=== PATIENT | female | born 1985 | race Caucasian/White ===

== ENCOUNTER 2016-11-08 16:05 | Emergency (ER) | payer MEDICAID ==
[~2016-11-08] VITALS: Ht 162.6 cm; Wt 57.0 kg
[~2016-11-08 16:05] MED LIST: antibiotic
[2016-11-08] MEDS ORDERED: SODIUM CHLORIDE 0.9% 1,000 ML IV ONE (23:47)
[2016-11-09] MEDS ORDERED: ONDANSETRON HCL 4MG/2ML VIAL IV ONE
[2016-11-09 00:21] LABS: CLARITY URINE CLEAR (CLEAR); COLOR URINE YELLOW (YELLOW); GLUCOSE URINE NEGATIVE (NEGATIVE); KETONES URINE NEGATIVE (NEGATIVE); LEUKOCYTE ESTERASE URINE NEGATIVE (NEGATIVE); NITRITE URINE NEGATIVE (NEGATIVE); OCCULT BLOOD URINE 1+ (NEGATIVE); PROTEIN URINE NEGATIVE (NEGATIVE); SPECIFIC GRAVITY URINE 1.032 (1.005-1.030); UROBILINOGEN URINE 0.2 E.U./dL (0.2-1.0)
[2016-11-09 00:22] LABS: UCG SCREEN NEGATIVE
[2016-11-09 00:30] LABS: BASOPHILS % 0.1 % (0.0-2.0); EOSINOPHILS % 0.5 % (0.0-5.0); HEMATOCRIT. 41.3 % (36.0-48.0); HEMOGLOBIN. 13.9 g/dL (12.0-16.0); LYMPHOCYTES % 39.4 % (20.0-50.0); MEAN CORPUSCULAR HEMOGLOBIN 29.6 pg (28.0-32.0); MEAN CORPUSCULAR HGB CONC 33.6 g/dL (31.0-37.0); MEAN CORPUSCULAR VOLUME 88.1 fL (81.0-99.0); MEAN PLATELET VOLUME 9.2 fl (7.4-10.4); MONOCYTES % 6.3 % (2.0-8.0); NEUTROPHILS % 53.7 % (40.0-76.0); PLATELET 231 x1000/uL (130-400); RED BLOOD CELL COUNT 4.69 mill/uL (4.2-5.4); RED CELL DISTRIBUTION WIDTH 13.5 % (11.6-14.6)
[2016-11-09 00:43] LABS: CHLORIDE 104 mEq/L (98-107); INDEX HEMOLYSI 1 (1-3); INDEX ICTERIC 1 (1-4); INDEX LIPEMIC 1 (1-3)
[2016-11-09 00:51] LABS: ALANINE AMINOTRANSFERASE 19 IU/L (13-61); ALBUMIN 3.7 g/dL (3.4-5.0); ANION GAP 13; CALCIUM 8.9 mg/dL (8.5-10.1); CARBON DIOXIDE 26 mEq/L (21-32); UREA NITROGEN BLOOD 15 mg/dL (7-21); eGFR > 60 mL/min (>60)
[2016-11-09 01:28] LABS: SQUAMOUS EPITHELIAL CELL URINE 1+ /lpf (RARE/1+)
[2016-11-09 01:30] LABS: BACTERIA URINE 1+
[2016-11-09 07:24] VITALS: BP 90/50
[2016-11-09] MEDS ORDERED: IOHEXOL-300 100 ML BOTTLE ONE (10:44)
[2016-11-09] MEDS ORDERED: SODIUM CHLORIDE 0.9% 10ML VIAL ONE (10:44)
== END 2016-11-09 08:00 | disposition home or self-care (01) ==
LOC: ER 16:06
DX: N39.0 Urinary tract infection, site not specified (principal); R11.2 Nausea with vomiting, unspecified
CPT/HCPCS: 36415; 74177; 80053; 81001; 81025; 85025; 96361; 96374; 99285; A4216; J2405; J7030; Q9967; Z7610

== ENCOUNTER 2017-02-12 17:34 | Emergency (ER) | payer MEDICAID ==
[~2017-02-12] VITALS: Ht 147.3 cm; Wt 53.0 kg
[2017-02-12] MEDS ORDERED: KETOROLAC 60MG/2ML VIAL IM ONE (20:00)
[2017-02-13 00:07] VITALS: BP 124/80
== END 2017-02-13 00:35 | disposition home or self-care (01) ==
LOC: ER 19:40
DX: M17.11 Unilateral primary osteoarthritis, right knee (principal); W06.XXXA Fall from bed, initial encounter; Y93.89 Activity, other specified; Y92.013 Bedroom of single-family (private) house as the place of occurrence of the external cause
CPT/HCPCS: 73562; 81025; 96372; 99284; J1885

== ENCOUNTER 2022-01-09 20:16 | Emergency (ER) | payer MEDICAID ==
[~2022-01-09] VITALS: Ht 149.9 cm; Wt 65.9 kg
[2022-01-09 20:33] VITALS: BP 116/78
[2022-01-09 21:12] LABS: CLARITY URINE CLOUDY (CLEAR); COLOR URINE DARK YELLOW (YELLOW); KETONES URINE TRACE (NEGATIVE); LEUKOCYTE ESTERASE URINE TRACE (NEGATIVE); NITRITE URINE NEGATIVE (NEGATIVE); OCCULT BLOOD URINE 2+ (NEGATIVE); PROTEIN URINE TRACE (NEGATIVE); SPECIFIC GRAVITY URINE 1.032 (1.005-1.030)
[2022-01-09] MEDS ORDERED: ACETAMINOPHEN 325MG TABLET PO STA (21:55)
[2022-01-09] MEDS ORDERED: FAMOTIDINE 20MG TABLET PO ONE (22:00)
[2022-01-09 22:58] LABS: BASOPHILS % 0.1 % (0.0-2.0); EOSINOPHILS % 0.4 % (0.0-5.0); HEMATOCRIT. 36.8 % (36.0-48.0); HEMOGLOBIN. 12.6 g/dL (12.0-16.0); LYMPHOCYTES % 23.8 % (20.0-50.0); MEAN CORPUSCULAR HEMOGLOBIN 29.5 pg (28.0-32.0); MEAN CORPUSCULAR VOLUME 86.5 fL (81.0-99.0); MEAN PLATELET VOLUME 9.4 fl (7.4-10.4); NEUTROPHILS % 68.7 % (40.0-76.0); PLATELET 305 x1000/uL (130-400); RED BLOOD CELL COUNT 4.26 mill/uL (4.2-5.4); RED CELL DISTRIBUTION WIDTH 12.8 % (11.6-14.6)
[2022-01-09 23:15] LABS: CHLORIDE 105 mEq/L (98-107)
[2022-01-09 23:37] LABS: B-HCG QUANTITATIVE 29689 mIU/mL (<3)
[2022-01-10] MEDS ORDERED: FAMOTIDINE 20MG TABLET PO NR (00:30)
[2022-01-10] MEDS ORDERED: ACETAMINOPHEN 325MG TABLET PO NR (00:30)
[2022-01-10] MEDS ORDERED: CEPHALEXIN 250MG CAPSULE PO ONE (01:15)
[2022-01-10] MEDS ORDERED: CEPH250C2 MT (01:17)
== END 2022-01-10 01:35 | disposition home or self-care (01) ==
LOC: ER 20:16
DX: O20.0 Threatened abortion (principal); Z3A.12 12 weeks gestation of pregnancy
CPT/HCPCS: 36415; 76801; 80053; 81003; 81025; 84702; 85025; 86850; 86900; 99284

== ENCOUNTER 2022-06-24 00:07 | Observation (INO) | payer MEDICAID, MEDICARE ==
[~2022-06-24] VITALS: Ht 149.9 cm; Wt 73.5 kg
[~2022-06-24 00:07] MED LIST changes: +CEPH250C2 MT
[2022-06-24] MEDS ORDERED: PNV1TABL50 MT (01:41)
[2022-06-24] MEDS ORDERED: PROT (01:41)
== END 2022-06-24 03:45 | disposition home or self-care (01) ==
LOC: 8 EST LDRP 00:07
PROVIDERS: ADMIT Obstetrics & Gynecology; ATTEND Obstetrics & Gynecology
DX: O62.9 Abnormality of forces of labor, unspecified (principal); O36.8130 Decreased fetal movements, third trimester, not applicable or unspecified; O26.893 Other specified pregnancy related conditions, third trimester; R10.2 Pelvic and perineal pain; N89.8 Other specified noninflammatory disorders of vagina; Z3A.36 36 weeks gestation of pregnancy
CPT/HCPCS: 59025; G0378

== ENCOUNTER 2022-07-01 07:55 | Inpatient (IN) | payer MEDICARE ==
[~2022-07-01] VITALS: Ht 149.9 cm; Wt 73.5 kg
[~2022-07-01 07:55] MED LIST changes: +PNV1TABL50 MT; +PROT
[2022-07-01] MEDS ORDERED: NALOXONE HCL 0.4 MG/ML 1ML VIAL IM PRN (08:30)
[2022-07-01] MEDS ORDERED: LACTATED RINGERS 1,000 ML IV SCH ×2 (08:30→10:00)
[2022-07-01] MEDS ORDERED: LIDOCAINE HCL 1% 20ML VIAL (Pyxis) INJ INFIL SCH (08:30)
[2022-07-01] MEDS ORDERED: BUTORPHANOL TARTRATE 2 MG/ML VIAL IV PRN (08:30)
[2022-07-01] MEDS ORDERED: METHYLERGONOVINE MALEATE 0.2 MG/ML IM PRN ×2 (08:30→11:45)
[2022-07-01 10:03] LABS: BASOPHILS % 0.7 % (0.0-2.0); EOSINOPHILS % 0.1 % (0.0-5.0); HEMOGLOBIN. 13.1 g/dL (12.0-16.0); MEAN CORPUSCULAR HEMOGLOBIN 29.1 pg (28.0-32.0); MEAN CORPUSCULAR VOLUME 86.5 fL (81.0-99.0); MEAN PLATELET VOLUME 9.9 fl (7.4-10.4); MONOCYTES % 3.9 % (2.0-8.0); NEUTROPHILS % 78.3 % (40.0-76.0); PLATELET 280 x1000/uL (130-400); RED BLOOD CELL COUNT 4.51 mill/uL (4.2-5.4); RED CELL DISTRIBUTION WIDTH 14.6 % (11.6-14.6)
[2022-07-01] MEDS ORDERED: FENTANYL CITRATE/PF 50MCG/ML 2ML VIAL ONE (10:13)
[2022-07-01] MEDS ORDERED: ROPIVACAINE HCL/PF EPIDURAL 0 ML EPI ONE (10:13)
[2022-07-01] MEDS ORDERED: ROPIVACAINE HCL/PF EPIDURAL 200 ML EPI NR (10:15)
[2022-07-01 10:30] LABS: INR 0.9; PARTIAL THROMBOPLASTIN TIME 31.9 sec (23.4-31.0); PROTHROMBIN TIME 10.1 sec (9.6-11.0)
[2022-07-01] MEDS: OXYTOCIN 30 UNITS/500ML NS PMX 500 ML IV SCH ×2 (10:51→12:02)
[2022-07-01 10:52] LABS: CLARITY URINE TURBID (CLEAR); COLOR URINE ORANGE (YELLOW); KETONES URINE NEGATIVE (NEGATIVE); LEUKOCYTE ESTERASE URINE 3+ (NEGATIVE); NITRITE URINE NEGATIVE (NEGATIVE); OCCULT BLOOD URINE 3+ (NEGATIVE); PH URINE 6.5 (4.5-8.0); PROTEIN URINE 1+ (NEGATIVE); SPECIFIC GRAVITY URINE 1.016 (1.005-1.030); UROBILINOGEN URINE 0.2 E.U./dL (0.2-1.0)
[2022-07-01] MEDS ORDERED: PENICILLIN G POTASSIUM 5 MMU in DEXT 5% WATER 100 ML IV NR (11:00)
[2022-07-01] MEDS ORDERED: OXYTOCIN 30 UNITS/500ML NS PMX 500 ML IV SCH (11:45)
[2022-07-01] MEDS ORDERED: LANOLIN OINT 7GM TUBE TOP PRN (11:45)
[2022-07-01] MEDS ORDERED: IBUPROFEN 400MG TABLET PO PRN (11:45)
[2022-07-01] MEDS ORDERED: IBUPROFEN 800MG TABLET PO PRN (11:45)
[2022-07-01] MEDS ORDERED: RHO(D) IMMUNE GLOBULIN 300 MCG/SYR IM PRN (11:45)
[2022-07-01 13:04] LABS: *AMPHETAMINES SCREEN URINE NEGATIVE (NEGATIVE); *BARBITURATES SCREEN URINE NEGATIVE (NEGATIVE); *BENZODIAZEPINES SCREEN URINE NEGATIVE (NEGATIVE); *COCAINE SCREEN URINE NEGATIVE (NEGATIVE); CANNABINOID URINE SCREEN NEGATIVE (NEGATIVE); METHADONE URINE SCREEN NEGATIVE (NEGATIVE); OPIATES URINE SCREEN NEGATIVE (NEGATIVE); PHENCYCLIDINE URINE SCREEN NEGATIVE (NEGATIVE)
[2022-07-01 13:15] VITALS: BP 123/72
[2022-07-01 14:15] VITALS: BP 100/50
[2022-07-01] MEDS ORDERED: PENICILLIN G POTASSIUM 2.5 MMU in DEXTROSE 5% WATER 50 ML IV SCH (15:00)
[2022-07-01] MEDS ORDERED: INFLUENZA VACCINE 05/PF 0.5 ML SYRINGE IM ONE (17:15)
[2022-07-01 19:00] VITALS: BP 113/62
[2022-07-01 19:30] VITALS: BP 100/63
[2022-07-02 04:00] VITALS: BP 110/53
[2022-07-02 07:16] LABS: BASOPHILS % 0.4 % (0.0-2.0); EOSINOPHILS % 0.1 % (0.0-5.0); HEMATOCRIT. 30.7 % (36.0-48.0); HEMOGLOBIN. 10.3 g/dL (12.0-16.0); MEAN CORPUSCULAR HEMOGLOBIN 29.1 pg (28.0-32.0); MEAN PLATELET VOLUME 9.8 fl (7.4-10.4); MONOCYTES % 3.6 % (2.0-8.0); NEUTROPHILS % 70.9 % (40.0-76.0); PLATELET 224 x1000/uL (130-400); RED BLOOD CELL COUNT 3.52 mill/uL (4.2-5.4); RED CELL DISTRIBUTION WIDTH 14.5 % (11.6-14.6)
[2022-07-02 08:05] VITALS: BP 98/57
[2022-07-02] MEDS: PRENATAL VIT/FE FUMARATE/FA TABLET PO SCH (09:51)
[2022-07-02 16:30] VITALS: BP 95/53
[2022-07-02 20:00] VITALS: BP 110/63
[2022-07-03 04:00] VITALS: BP 101/56
[2022-07-03 07:30] VITALS: BP 106/62
[2022-07-03] MEDS: PRENATAL VIT/FE FUMARATE/FA TABLET PO SCH (08:45)
[2022-07-03] MEDS ORDERED: NORE0.3520 MT (08:55)
[2022-07-03] MEDS ORDERED: FERR1TAB91 MT (08:55)
[2022-07-03] MEDS ORDERED: IBUP-2030 PO (08:55)
[2022-07-03 15:00] LABS: HEPATITIS B SURFACE ANTIGEN NEGATIVE
== END 2022-07-03 11:00 | disposition home or self-care (01) | DRG 560 ==
LOC: 8 EST LDRP 07:55 → OBSVTOIN 08:52 → 8EST 12:55
PROVIDERS: ADMIT Obstetrics & Gynecology; ATTEND Obstetrics & Gynecology
PROC: 10E0XZZ Delivery of Products of Conception, External Approach (ICD-10-PCS; principal; 2022-07-01)
PROC: 0HQ9XZZ Repair Perineum Skin, External Approach (ICD-10-PCS; 2022-07-01)
DX: O99.214 Obesity complicating childbirth (principal); Z37.0 Single live birth; D62 Acute posthemorrhagic anemia; O99.02 Anemia complicating childbirth; O70.0 First degree perineal laceration during delivery; Z20.822 Contact with and (suspected) exposure to COVID-19; Z3A.37 37 weeks gestation of pregnancy
CPT/HCPCS: 36415; 80305; 81003; 85025; 86592; 86703; 86762; 86850; 86900; 87340; 87426; 90686; 99281; G0378; J0595; J2310; J2540; J2795; J3010; J3490; J7060; A4315; J2590